=== PATIENT | female | born 1980 | race Native Hawaiian/Other Pacific Islander ===

== ENCOUNTER 2017-12-20 19:24 | Inpatient (IN) | payer OTHER ==
[2017-12-20 19:27] VITALS: BMI 28.7
[2017-12-20] MEDS ORDERED: Lactated Ringer's 1,000 ML IV SCH ×2 (19:45)
[2017-12-20] MEDS ORDERED: Oxytocin 30 units/LR 500ML 30 U/500 ML BAG IV SCH (19:45)
[2017-12-20 20:30] LABS: BASO % 0.2 % (0.0-2.0); EOS # 0.1 K/uL (0.0-0.7); HEMOGLOBIN 11.1 g/dL (12.0-16.0); LYMPH # 1.8 K/uL (1.0-4.3); LYMPH % 19.3 % (20.0-40.0); MEAN CELL VOLUME 80.5 fl (81.0-99.0); MEAN CORPUSCULAR HEMOGLOBIN 26.6 pg (27.0-31.0); MEAN PLATELET VOLUME 8.6 fl (7.2-11.7); MONO # 0.7 K/uL (0.0-0.8); MONO % 6.9 % (0.0-10.0); NEUT # 6.8 K/uL (1.8-7.0); NEUT % 72.6 % (50.0-75.0); RBC 4.18 Mil/uL (3.80-5.20); RED CELL DISTRIBUTION WIDTH 15.5 % (11.5-14.5); WHITE BLOOD COUNT 9.4 K/uL (4.8-10.8)
[2017-12-20 20:36] VITALS: O2SAT 100
[2017-12-20 20:39] LABS: ALB/GLOB RATIO 1.1 (1.0-2.1); ALBUMIN 3.5 g/dL (3.5-5.0); ALT/SGPT 32 U/L (9-52); AST/SGOT 27 U/L (14-36); BLOOD UREA NITROGEN 6 mg/dl (7-17); CALCIUM 9.8 mg/dL (8.4-10.2); GFR AFRICAN-AMERICAN > 60; GFR NON-AFRICAN AMERICAN > 60
--- NOTE | 2017-12-21 07:15 | OBPN ---
Datetime: 12/20/2017 20:45 IP Progress Note Comment: Cervidil place at 20:45pm Datetime: 12/20/2017 19:59 FHR - Baseline A Provider: 130 Vital Signs Provider: Reviewed; Within Normal Limits NICHD Variability Prov Fetus A: Moderate 6-25bpm (Annotations: Data stored by CPN on behalf of user) NICHD Decel Fetus A IP Provider: None Datetime: 12/20/2017 19:52 Pool Provider: Negative Membranes, Provider: Intact NICHD Accel Fetus A IP Provider: 15X15 (Annotations: Data stored by CPN on behalf of user) FHR Category Provider Fetus A: Category I Dilatation, Provider: 0 Effacement, Provider: 0
--- NOTE | 2017-12-21 07:15 | OBHP ---
Datetime: 12/20/2017 19:59 IP Admit Plan: Admit to unit; Initiate labor induction protocol; Observation/Evaluation Extremities - PN: Normal Abdomen - PN: Normal Back - PN: Normal Lungs - PN: Normal Heart - PN: Normal Thyroid - PN: Normal Neurologic - PN: Normal HEENT - PN: Normal General - PN: Normal FHR - Baseline A Provider: 130 Comments, ACOG Physical Exam: U/S: Vertex (Annotations: Data stored by CPN on behalf of user) EGA AdmitDate IP: 39.2 Vital Signs Provider: Reviewed; Within Normal Limits IP Indication for Induction: Not Applicable; Maternal Diabetes IP Chief Complaint: Scheduled induction of labor NICHD Variability Prov Fetus A: Moderate 6-25bpm (Annotations: Data stored by CPN on behalf of user) NICHD Decel Fetus A IP Provider: None Datetime: 12/20/2017 19:52 IP Adm Impression: Term, intrauterine ; No Active Labor; Intact Membranes Admit Comment, IP Provider: This is 37 y/o F, , IUP at 39+ comes to the OB ED for induction complicated by high blood sugar and started on medication Patient denies any LOF/BV/CTX, reports good FM ROS unremarkable PNC: Dr. Rose PNI: DMA2 , Glyburide PMH: Denies PSH: D_C Allg: NKDA Meds: PNV, Glyburide SH: Denies alcohol, smoking or drug use FH: Denies VS: Reviewed PE: as above A/P: 37 y/o F, , IUP at 39+ GDMA2 - Initiate Labor Induction Protocol - Labs - U/S (vertex) cervidil Case discussed with OB attending oncall --- Noel Almaguer, PGY-1 OB Hospitalist on-call : WithPGY1, I saw and examined this patient. Agree with note. MAHNDO Membranes, Provider: Intact Pool Provider: Negative IP Hx Assessment: The History has been Reviewed and is Current NICHD Accel Fetus A IP Provider: 15X15 (Annotations: Data stored by CPN on behalf of user) FHR Category Provider Fetus A: Category I Dilatation, Provider: 0 Effacement, Provider: 0
--- NOTE | 2017-12-21 09:57 | OBPN ---
Datetime: 12/21/2017 09:53 IP Informed Consent Obtain: Vaginal Delivery IP Procedures: Sterile Vag Exam IP Progress Plan: Continue present management Contraction Comments Provider: Irregular FHR - Baseline A Provider: 135 IP Progress Note Comment: Patient comfortable, does not want any pain medication at this time Last FS = 83 VE=FT/60/-3 IHP=935 mod mat, +accels, no decels TOCO = Irregular A/P 1. Continue induction with Cytotec 50mcg PO q 4 hours. 2. While patient is eating will do FS 2 hr PP. Otherwise q 4 hours while in latent phase of labor 3. CEFM and TOCO Vital Signs Provider: Reviewed; Within Normal Limits NICHD Accel Fetus A IP Provider: 15X15 NICHD Variability Prov Fetus A: Moderate 6-25bpm Dilatation, Provider: FT Effacement, Provider: 60 Station, Provider: -3
[2017-12-21] MEDS: Lactated Ringer's 1,000 ML IV SCH (10:45)
[2017-12-21] MEDS ORDERED: Lactated Ringer's 500 ML IV SCH (11:45)
[2017-12-22] MEDS: Lactated Ringer's 1,000 ML IV SCH ×2 (01:30→08:02)
--- NOTE | 2017-12-22 09:53 | OBPN ---
Datetime: 12/22/2017 09:00 IP Progress Note Comment: OB Hospitaliston-call.. Sign out rec'd. After she had Cervidil, she was given Cytotec. Last dose just given. Will re-examine after 3-4h...allow to eat/ambulate. FHR reactive A: IUP at 39w; GDMA2 controlled PLAN: continue IOL MAHNDO
[2017-12-22] MEDS ORDERED: Oxytocin 30 units/LR 500ML 30 UNITS/500 ML BAG IV ONE (13:34)
--- NOTE | 2017-12-22 14:14 | OBPN ---
Datetime: 12/22/2017 11:50 IP Progress Impression: Reassuring heart rate IP Progress Plan: Induction IP Progress Note Comment: She had last Cytotec 50mcg (number 6 at 8:30am)...she felt some CTX SVE FT high Will re-examine after SSE (stool in rectum/hard)...start pitocin induction Dilatation, Provider: CLAUDIA
--- NOTE | 2017-12-22 19:14 | OBPN ---
Datetime: 12/22/2017 19:00 IP Informed Consent Obtain: Section Delivery; Risks, Benefits and Alternatives Discussed IP Progress Plan: Deliver- Section Pool Provider: Negative Membranes, Provider: Intact FHR - Baseline A Provider: 130 Presentation-Admit: Vertex IP Progress Note Comment: She feels occ CTX; Pitocin at 12miu/h Three deceleratoins noted with recovery. A: Declerations remote from recovery PLAN: condition explained to pt. She understands and her question answered...will prep for C/S Inf ormed consent obtained NICHD Accel Fetus A IP Provider: 15X15 FHR Category Provider Fetus A: Category II NICHD Variability Prov Fetus A: Moderate 6-25bpm Dilatation, Provider: Danay
[2017-12-22] MEDS ORDERED: ePHEDrine 50 mg/ml Inj ONE (19:26)
[2017-12-22] MEDS ORDERED: Phenylephrine 10 mg/ml Inj ONE (19:27)
[2017-12-22] MEDS ORDERED: Morphine 1 mg/ml preservative-free Inj(Duramorph) ONE (19:27)
[2017-12-22] MEDS ORDERED: ceFAZolin 2 GM in Sodium Chloride 0.9% 100 ML IVPB ONE (19:30)
[2017-12-22] MEDS ORDERED: Oxycodone/Acetaminophen 5/325 mg Tab PO PRN ×3 (20:40→23:46)
[2017-12-22] MEDS ORDERED: DiphenhydrAMINE 50 mg/ml Inj IVP PRN ×2 (20:44→23:46)
[2017-12-22] MEDS ORDERED: Lactated Ringer's 1,000 ML IV SCH (23:46)
[2017-12-23 06:34] LABS: BASO % 0.1 % (0.0-2.0); EOS % 0.1 % (0.0-4.0); HEMOGLOBIN 10.2 g/dL (12.0-16.0); LYMPH % 8.4 % (20.0-40.0); MEAN CELL VOLUME 80.1 fl (81.0-99.0); MEAN CORPUSCULAR HEMOGLOBIN 26.6 pg (27.0-31.0); MEAN CORPUSCULAR HGB CONC 33.2 g/dL (33.0-37.0); MEAN PLATELET VOLUME 8.4 fl (7.2-11.7); MONO # 0.7 K/uL (0.0-0.8); MONO % 6.1 % (0.0-10.0); NEUT % 85.3 % (50.0-75.0); PLATELET COUNT 129 K/uL (130-400); RBC 3.85 Mil/uL (3.80-5.20); RED CELL DISTRIBUTION WIDTH 15.6 % (11.5-14.5); WHITE BLOOD COUNT 11.7 K/uL (4.8-10.8)
[2017-12-23 07:30] LABS: LYMPHOCYTE 7 % (20-50); MONOCYTE 7 % (0-10); NEUTROPHIL 86 % (42-75); TOTAL CELLS COUNTED 100
[2017-12-23 07:31] LABS: ANISOCYTOSIS SLIGHT; LARGE PLATELETS PRESENT; PLATELET ESTIMATE NORMAL (NORMAL)
[2017-12-23] MEDS: Oxycodone/Acetaminophen 5/325 mg Tab PO PRN ×3 (09:21→20:14)
--- NOTE | 2017-12-23 19:03 | OBDS ---
DELIVERY PERSONNEL Delivery Doctor: Leah Falcon DO Graphic Designer: Robby RAMIREZ, Pawan RAMIREZ Anesthesiologist: Pratibha Lester MD Resident: Dr. Deutsch MATERNAL INFORMATION Delivery Anesthesia: Spinal Medications in Delivery: Pitocin Estimated Blood Loss (ml): 800 Placenta Cultured: No Maternal Complications: Other Other Maternal Complications: Patient was sectioned due to Decelerations remote from delivery Provider Comments: Pre Op Dx declerations remote from delivery Post Op Dx same Procedure Primary LTCS via Pfannenstiel incision Surgeon Dr FALCON Asst Dr Duncan Sosa 2nd Asst Dr Deutsch Anest Dr Lester Anest: spinal Findings: live infant delivered from [facility] presentation Clear AF; 9,9 Cord around right leg Placenta delivered manually Ovaries/Tubes WNL She remained stable All equipment sponges and needles accouted for EBL 800cc LABOR SUMMARY EDC: 12/25/2017 00:00 No. Babies in Womb: 1 Attempted: No Labor Anesthesia: Spinal LABOR INFORMATION Reason for Induction: Maternal Diabetes Cervical Ripening Agents: Cytotec @ (Annotations: 50 mch given po as ordered(6th dose)) Oxytocin: Augmentation Group B Beta Strep: Negative Antibiotics # of Doses: 1 Antibiotics Time of Last Dose: Ancef 2 Gram 1930 (Annotations: Data stored by N on behalf of user) Steroids Given: None Reason Steroids Not Administered: Not Applicable MEMBRANES Membranes Rupture Method: Artificial Rupture of Membranes: 12/22/2017 20:08 Length of Rupture (hrs): 0.03 Amniotic Fluid Color: Clear Amniotic Fluid Amount: Moderate STAGES OF LABOR Stage 3 hrs: 0 Stage 3 min: 1 CSECTION DELIVERY Primary Indication: Other Other Primary Indication: decelerations remote from delivery Secondary Indication: Failed Induction CSection Urgency: Emergency CSection Incidence: Primary CSection Incision: Lower Uterine Transverse Uterine Closure: Double-layer closure BABY A INFORMATION Infant Delivery Date/Time: 12/22/2017 20:10 Method of Delivery: Born in Route : No : N/A Forceps: N/A Vacuum Extraction: N/A Shoulder Dystocia : No SHOULDER DYSTOCIA BABY A Infant Delivery Date/Time: 12/22/2017 20:10 PRESENTATION/POSITION BABY A Presentation: Cephalic Cephalic Presentation: Vertex Breech Presentation: N/A PLACENTA INFORMATION BABY A Placenta Delivery Time : 12/22/2017 20:11 Placenta Method of Delivery: Manual Removal Placenta Status: Delivered SCORES BABY A Heart Rate 1 min: >100 bpm Resp Effort 1 min: Good Cry Reflex Irritability 1 min: Cough or Sneeze or Pulls Away Muscle Tone 1 min: Active Motion Color 1 min: Body [place], Extremities Blue Resuscitation Effort 1 min: Tactile Stimulation SCORE 1 MIN: 9 Heart Rate 5 min: >100 bpm Resp Effort 5 min: Good Cry Reflex Irritability 5 min: Cough or Sneeze or Pulls Away Muscle Tone 5 min: Active Motion Color 5 min: Body [place], Extremities Blue Resuscitation Effort 5 min: N/A SCORE 5 MIN: 9 INFANT INFORMATION BABY A Gestational Age at Delivery: 39.0 Gestational Status: Term Infant Outcome : Liveborn Infant Condition : Stable Sex: Male IDENTIFICATION/MEDS BABY A ID Band Number: [id number] ID Band Location: Left Leg; Left Arm WEIGHT/LENGTH BABY A Birthweight (gms): 3010 Weight (lb): 6 Weight (oz): 10 CORD INFORMATION BABY A No. Cord Vessels: 3 Nuchal Cord : N/A Nuchal Cord Other: x1 cord around the right leg Cord Blood Taken: Yes (Annotations: Data stored by [facility] on behalf of user) Infant Suction: Mouth; Nose ASSESSMENT BABY A Complications: Multiple Late Decels Physical Findings at Delivery: Within Normal Limits Respirations: Appears Normal Animal Husbandman/ALS Called : No Care By: Joon Farah RN Transferred To: [facility]
--- NOTE | 2017-12-23 19:04 | OBDS ---
DELIVERY PERSONNEL Delivery Doctor: Leah Falcon DO Counter Maker: Robby RAMIREZ, Pawan RAMIREZ Anesthesiologist: Pratibha Lester MD Resident: Dr. Deutsch MATERNAL INFORMATION Delivery Anesthesia: Spinal Medications in Delivery: Pitocin Estimated Blood Loss (ml): 800 Placenta Cultured: No Maternal Complications: Other Other Maternal Complications: Patient was sectioned due to Decelerations remote from delivery Provider Comments: Pre Op Dx declerations remote from delivery Post Op Dx same Procedure Primary LTCS via Pfannenstiel incision Surgeon Dr FALCON Asst Dr Duncan Sosa 2nd Asst Dr Deutsch Anest Dr Lester Anest: spinal Findings: [facility] Clear AF; 9,9 Cord around right leg Placenta delivered manually Ovaries/Tubes WNL She remained stable All equipment sponges and needles accouted for EBL 800cc LABOR SUMMARY EDC: 12/25/2017 00:00 No. Babies in Womb: 1 Attempted: No Labor Anesthesia: Spinal LABOR INFORMATION Reason for Induction: Maternal Diabetes Cervical Ripening Agents: Cytotec @ (Annotations: 50 mch given po as ordered(6th dose)) Cervical Ripening Agents: Cytotec @ (Annotations: 5th dose of Cytotec 50mcg tab given PO ) Cervical Ripening Agents: Cytotec @ 50 Cervical Ripening Agents: Cytotec @ 50 Cervical Ripening Agents: Cytotec @ 50 mcg in 1/2 tab po Cervical Ripening Agents: Cervidil Cervical Ripening Agents: Cervidil Oxytocin: Augmentation Group B Beta Strep: Negative Antibiotics # of Doses: 1 Antibiotics Time of Last Dose: Ancef 2 Gram 1930 (Annotations: Data stored by N on behalf of user) Steroids Given: None Reason Steroids Not Administered: Not Applicable MEMBRANES Membranes Rupture Method: Artificial Rupture of Membranes: 12/22/2017 20:08 Length of Rupture (hrs): 0.03 Amniotic Fluid Color: Clear Amniotic Fluid Amount: Moderate STAGES OF LABOR Stage 3 hrs: 0 Stage 3 min: 1 CSECTION DELIVERY Primary Indication: Other Other Primary Indication: decelerations remote from delivery Secondary Indication: Failed Induction CSection Urgency: Emergency CSection Incidence: Primary CSection Incision: Lower Uterine Transverse Uterine Closure: Double-layer closure BABY A INFORMATION Delivery Date/Time: 12/22/2017 20:10 Method of Delivery: Born in Route : No : N/A Forceps: N/A Vacuum Extraction: N/A Shoulder Dystocia : No SHOULDER DYSTOCIA BABY A Delivery Date/Time: 12/22/2017 20:10 PRESENTATION/POSITION BABY A Presentation: Cephalic Cephalic Presentation: Vertex Breech Presentation: N/A PLACENTA INFORMATION BABY A Placenta Delivery Time : 12/22/2017 20:11 Placenta Method of Delivery: Manual Removal Placenta Status: Delivered SCORES BABY A Heart Rate 1 min: >100 bpm Resp Effort 1 min: Good Cry Reflex Irritability 1 min: Cough or Sneeze or Pulls Away Muscle Tone 1 min: Active Motion Color 1 min: Body [place], Extremities Blue Resuscitation Effort 1 min: Tactile Stimulation SCORE 1 MIN: 9 Heart Rate 5 min: >100 bpm Resp Effort 5 min: Good Cry Reflex Irritability 5 min: Cough or Sneeze or Pulls Away Muscle Tone 5 min: Active Motion Color 5 min: Body [place], Extremities Blue Resuscitation Effort 5 min: N/A SCORE 5 MIN: 9 INFANT INFORMATION BABY A Gestational Age at Delivery: 39.0 Gestational Status: Term Outcome : Liveborn Infant Condition : Stable Infant Sex: Male IDENTIFICATION/MEDS BABY A ID Band Number: [id number] ID Band Location: Left Leg; Left Arm WEIGHT/LENGTH BABY A Infant Birthweight (gms): 3010 Infant Weight (lb): 6 Weight (oz): 10 CORD INFORMATION BABY A No. Cord Vessels: 3 Nuchal Cord : N/A Nuchal Cord Other: x1 cord around the right leg Cord Blood Taken: Yes (Annotations: Data stored by [facility] on behalf of user) Suction: Mouth; Nose ASSESSMENT BABY A Complications: Multiple Late Decels Physical Findings at Delivery: Within Normal Limits Respirations: Appears Normal Licensing Services Clerk/ALS Called : No Infant Care By: Joon Farah RN Transferred To: Nursery
[2017-12-24] MEDS: Oxycodone/Acetaminophen 5/325 mg Tab PO PRN (03:27)
--- NOTE | 2017-12-24 08:17 | OP ---
PROCEDURE DATE: 12/22/2017 PREOPERATIVE DIAGNOSIS: Decelerations remote from delivery. POSTOPERATIVE DIAGNOSIS: Decelerations remote from delivery. PROCEDURE: Primary low transverse section via Pfannenstiel incision. SURGEON: Leif Brown DO PIPELINER: Lulú Sosa MD (Dr. Lulú Sosa is a board certified GENETIC ENGINEER physician, who is available to assist on this case. His presence was necessary and vital for the procedure. He was present from the time of skin incision to delivery of the infant to the closure of the skin). SECOND ASST: Dr Yvette Abdul PGY1 ANESTHESIOLOGIST: Issac Lester MD TYPE OF ANESTHESIA: Spinal. OPERATIVE FINDINGS: Live delivered from cephalic presentation. Clear amniotic fluid. Apgars score at 9 and 9 given at 1 and 5 minutes respectively. One loose cord was noted around the right leg. Placenta was delivered intact manually. Ovaries and tubes appeared to be within normal limits grossly. She remained hemodynamically stable throughout the procedure. All equipments, sponge, and needles accounted for. ESTIMATED BLOOD LOSS: 800 mL. DESCRIPTION OF PROCEDURE: Mirian was brought to the operating room, after successful spinal anesthesia by Dr. Lester, she was placed in a supine position. She was then draped and prepped in usual sterile manner, after compression boots were placed on both lower extremities and a Benavides catheter is draining clear urine and left in place. Once adequate anesthesia was obtained, a Pfannenstiel incision was made using a scalpel. Incision was then taken down to underlying fascia using electrocautery. Fascia was nicked in the midline and extended bilaterally using electrocautery. Inferior aspect of the fascia was grasped using 2 Lillian clamps and tented up in the rectus muscle was both bluntly and sharply dissected. The same was done with the superior aspect of the fascia. In the midline superiorly, the rectus muscle was bluntly . In the midline, peritoneum was identified and then entered bluntly. The incision was then extended superiorly and inferiorly with direct visualization of the bladder and intestines. Two wet lap pads were placed in the paracolic gutters. The incision was made on the peritoneum on the uterus using Metzenbaum scissors, extending it bilaterally to clear the bladder flap. A bladder flap was created digitally. Bladder blade was then inserted behind the bladder flap. A low transverse incision was made using a scalpel. Upon entering the uterus, incision was then extended bilaterally using bandage scissors. Rupture of membranes was performed using an Allis clamp. Clear amniotic fluid was noted. The infant was then delivered as atraumatically as possible. First the infant head was delivered with bulb suction nasopharyngeally. The remainder of the was then delivered and noted to have a loose cord around the right foot. This was reduced. was crying spontaneously. Cord was clamped and cut. was handed to the contour stitcher in attendance. Placenta was then delivered intact manually after cord bloods were obtained. Uterus was then exteriorized, cleared of debris and clots. Good contracted uterus was noted, IV Pitocin given. A 0 Vicryl suture was used to close the first layer of the uterus in an interlocking fashion, second layer of the uterus was closed using 0 Vicryl suture imbricating the first layer. Good hemostasis was assured. A 2-0 chromic suture was used to approximate the bladder flap. Hemostasis assured. Ovary and tubes appeared to be within normal limits grossly. Posterior cul-de-sac was noted to be clear of debris and clots. Uterus placed back into the peritoneal cavity. Paracolic gutters were noted to be clear of debris and clots and lower uterine segment noted to have good hemostasis. All equipment was removed and accounted for. A 0 Vicryl suture was used to approximate the peritoneum in running fashion. Rectus muscle was noted to have good hemostasis. A 0 Vicryl suture was used to approximate the fascia layer in a running fashion. Irrigation was performed. Hemostasis assured using electrocautery and subcuticular layer. A 2-0 plain suture was used to approximate the subcuticular layer x3. A 3-0 Vicryl suture was used to approximate the skin. Steri-Strips, Dermabond, and pressure bandage were applied. She was then transferred to the recovery room in stable condition. Leif Brown DO GUILLERMINA
--- NOTE | 2017-12-25 10:45 | OBPPN ---
Datetime: 12/25/2017 10:43 PP Pain Prov: Within normal limits PP Nausea Prov: Denies PP Flatus Prov: Yes PP BM Prov: Yes PP Breasts Prov: Normal PP Heart Prov: Normal PP Lungs Prov: Normal PP Abdomen/Uterus Prov: Normal PP Lochia Prov: Normal PP Vulva/Perineum Prov: Normal PP CVA Tenderness Prov: Normal PP Extremities Prov: Normal PP Comments Phys Exam Prov: Fundus firm under umbilicus PP Impression Prov: Normal progression PP Plan Prov: Continue present management PP Progress Note Prov: Patient denies CP, no SOB, no n/V, tolerating PO diet, ambulating/voiding wel l, mild lochia, abdominal pain tolerable with meds, +flatus, +BM IP PP Procedures: None Vital Signs Provider PP: Reviewed; Within Normal Limits
--- NOTE | 2017-12-26 11:47 | OBPPN ---
Datetime: 12/26/2017 11:45 PP Pain Prov: Within normal limits PP Nausea Prov: Denies PP Flatus Prov: Yes PP BM Prov: Yes PP Breasts Prov: Normal PP Heart Prov: Normal PP Lungs Prov: Normal PP Abdomen/Uterus Prov: Normal PP Lochia Prov: Normal PP Vulva/Perineum Prov: Normal PP CVA Tenderness Prov: Normal PP Extremities Prov: Normal PP C/S Incision Prov: Normal PP Progress Prov: Normal PP Comments Phys Exam Prov: Abdomen soft, nontender, nondistended Incision clean, dry, intact No deep calf tenderness bilaterally PP Impression Prov: Normal progression PP Plan Prov: Discharge PP Progress Note Prov: Postoperative day #3 status post , patient recovering well Discharge patient home with postoperative instructions Follow-up in office in 1 week for incision check IP PP Procedures: None Vital Signs Provider PP: Reviewed; Within Normal Limits
--- NOTE | 2017-12-26 11:49 | OBDCSUM ---
Datetime: 12/26/2017 11:46 Discharged to, Provider: Home Follow up at, Provider: Jeremie Disch Instr Activity: Normal activity Disch Instr Diet: Regular Discharge Instructions, Provider: Routine instructions given Discharge Diagnosis, Provider: Term Delivered Discharge Time: 12/26/2017 11:47 Follow up in weeks, Provider: 1 week Disch Referrals: None Contraception discussed, Prov: Yes Disch Activity Restrictions: No lifting; No sexual activity; Nothing in vagina - [place], tampon s, douche Contraception after Delivery: Undecided
[2017-12-26 19:15] VITALS: BP 109/54; PULSE 72; RESP 19; TEMP 98.1
== END 2017-12-26 14:45 | disposition home or self-care (01) | DRG 766 ==
LOC: H.EROB2 19:24 → H.L&D 19:33 → H.OB/GYN 12-22 23:45
PROVIDERS: ADMIT Obstetrics & Gynecology; ATTEND Obstetrics & Gynecology
PROC: 10D00Z1 Extraction of Products of Conception, Low, Open Approach (ICD-10-PCS; principal; 2017-12-20)
PROC: 4A1HXCZ Monitoring of Products of Conception, Cardiac Rate, External Approach (ICD-10-PCS; 2017-12-20)
DX: O76 Abnormality in fetal heart rate and rhythm complicating labor and delivery (principal); O24.429 Gestational diabetes mellitus in childbirth, unspecified control; Z37.0 Single live birth; Z3A.39 39 weeks gestation of pregnancy; O69.81X0 Labor and delivery complicated by cord around neck, without compression, not applicable or unspecified; O61.9 Failed induction of labor, unspecified